=== PATIENT | male | born 1970 | race Two or more races ===

== ENCOUNTER 2025-07-17 18:05 | Emergency (ER) | payer OTHER ==
[~2025-07-17] VITALS: Ht 177.8 cm; Wt 68.0 kg
[2025-07-17] MEDS ORDERED: OMEPRAZOLE MAGN20 MG (18:14)
[2025-07-17] MEDS ORDERED: KETOROLAC TROMETHAMINE 30 MG VIAL IM STA (19:59)
[2025-07-17] MEDS ORDERED: KETOROLAC TROMETHAMINE 30 MG VIAL ONE (20:13)
== END 2025-07-17 22:50 | disposition home or self-care (01) ==
LOC: ER 18:05
DX: M25.552 Pain in left hip (principal); W18.39XA Other fall on same level, initial encounter; Y93.89 Activity, other specified; Y92.89 Other specified places as the place of occurrence of the external cause